=== PATIENT | male | born 1990 | race Caucasian/White ===

== ENCOUNTER 2017-11-23 23:30 | Emergency (ER) | payer MEDICAID ==
[~2017-11-23] VITALS: Ht 170.2 cm; Wt 95.3 kg
--- NOTE | 2017-11-24 00:09 | NUR ---
PT AMBULATORY TO ER BED 3. BIB GF C/O HEADACHE W/DIZZINESS X 2 HOURS. PT PLACED ON MULTICULTURAL MANAGER. VSS/RESP EVEN UNLABORED/NAD NOTED/SKIN WARM AND DRY/AFEBRILE/DENIES N-V-D/AOX4. AWAITNG MD PONCE.
[2017-11-24] MEDS ORDERED: diphenhydrAMINE HCL 50 MG/ML VIAL ONE (01:26)
[2017-11-24] MEDS ORDERED: METOCLOPRAMIDE HCL 10 MG/2 ML VIAL ONE (01:26)
[2017-11-24] MEDS ORDERED: IV NS 0.9% 1,000 ML BAG IV ONE (01:30)
[2017-11-24] MEDS ORDERED: diphenhydrAMINE HCL 50 MG/ML VIAL IV ONE (01:30)
[2017-11-24] MEDS ORDERED: METOCLOPRAMIDE HCL 10 MG/2 ML VIAL IV ONE (01:30)
--- NOTE | 2017-11-24 01:40 | NUR ---
16G IV TO R AC X 1 ATTEMPT USING ASEPTIC TECH. IV FLUSHES EASILY WITH NS, NO S/S INFILTRATION NOTED AT THIS TIME.
--- NOTE | 2017-11-24 01:45 | NUR ---
PT TO CT VIA STRETCHER. VSS.
[2017-11-24] MEDS ORDERED: KETOROLAC TROMETHAMINE INJ 30 MG/ML VIAL IV ONE (02:30)
[2017-11-24] MEDS ORDERED: KETOROLAC TROMETHAMINE INJ 30 MG/ML VIAL ONE (02:41)
--- NOTE | 2017-11-24 03:48 | NUR ---
IV removed. Catheter intact and site benign. Pressure and 4x4 applied to site. No bleeding noted. Patient discharged to home in stable condition. Written and verbal after care instructions given. Patient verbalizes understanding of instruction. Patient is awake and alert to self, day, and place. Patient ambulatory with a steady gait.
[2017-11-24 03:50] VITALS: BP 99/59
== END 2017-11-24 03:51 | disposition home or self-care (01) ==
LOC: ER 23:33
DX: R51 Headache (principal); R42 Dizziness and giddiness; Z90.89 Acquired absence of other organs
CPT/HCPCS: 70450-TC; 82962-TC; A4606; J1200; J1885; J2765; J7030; Z7610

== ENCOUNTER 2019-06-28 13:56 | Emergency (ER) | payer MEDICAID ==
[~2019-06-28] VITALS: Ht 167.6 cm; Wt 94.3 kg
[2019-06-28] MEDS ORDERED: ONDANSETRON HCL/PF 4 MG/2 ML VIAL IVP ONE (14:30)
[2019-06-28] MEDS ORDERED: IV NS 0.9% 1,000 ML BAG IV ONE (14:30)
[2019-06-28] MEDS ORDERED: ONDANSETRON HCL/PF 4 MG/2 ML VIAL ONE (14:39)
[2019-06-28 14:41] LABS: BASOPHILS # (AUTO) 0.1 /CMM (0.0-0.2); EOSINOPHILS % (AUTO) 5.3 % (0.0-6.0); HEMATOCRIT 47 % (39-51); LYMPHOCYTES # (AUTO) 2.3 /CMM (0.8-4.8); LYMPHOCYTES % (AUTO) 28.8 % (20.0-44.0); MEAN CORPUSCULAR HGB CONC 34 g/dl (31.0-36.0); MEAN CORPUSCULAR VOLUME 89 fL (80-96); MONOCYTES # (AUTO) 0.5 /CMM (0.1-1.30); MONOCYTES % (AUTO) 6.2 % (2.0-12.0); NEUTROPHILS # (AUTO) 4.6 /CMM (1.8-8.9); NEUTROPHILS % (AUTO) 58.7 % (43.0-81.0); PLATELET COUNT (AUTO) 251 /CMM (150-450); WHITE BLOOD COUNT (AUTO) 7.8 K/uL (4.3-11.0)
[2019-06-28 14:48] LABS: CALCIUM, SERUM 8.9 mg/dL (8.5-10.1); CARBON DIOXIDE 28 mmol/L (21-32); CHLORIDE 105 mmol/L (98-107); CREATININE 0.9 mg/dL (0.6-1.3); GLUCOSE 100 mg/dL (74-106); POTASSIUM 3.8 mmol/L (3.5-5.1); SODIUM SERUM 142 mmol/L (136-145); UREA NITROGEN, BLOOD 12 mg/dL (7-18)
[2019-06-28 14:54] LABS: ALANINE AMINOTRANSFERASE 51 U/L (12-78); ALBUMIN 3.8 g/dL (3.4-5.0); ALKALINE PHOSPHATASE 97 U/L (46-116); ASPARTATE AMINOTRANSFERASE 25 U/L (15-37); BILIRUBIN,DIRECT 0.1 mg/dL (0.0-0.2); BILIRUBIN,TOTAL 0.5 mg/dL (0.2-1.0); TOTAL PROTEIN, SERUM 7.5 g/dL (6.4-8.2)
[2019-06-28 15:45] VITALS: BP 126/85
== END 2019-06-28 15:56 | disposition home or self-care (01) ==
LOC: ER 13:59
DX: E86.0 Dehydration (principal); Z90.89 Acquired absence of other organs
CPT/HCPCS: 36415; 71045; 80048; 80076; 84484; 85025; 85730; 93005; 96361; 96374; 99285; J2405; J7030

== ENCOUNTER 2021-06-08 09:19 | Emergency (ER) | payer MEDICAID ==
[~2021-06-08] VITALS: Ht 167.6 cm; Wt 113.4 kg
[2021-06-08 09:40] VITALS: BP 121/77
--- NOTE | 2021-06-08 09:47 | NUR ---
dr shelton at bedside for eval.
--- NOTE | 2021-06-08 10:25 | NUR ---
straddle bug operator at bedside for chest xray.
[2021-06-08] MEDS ORDERED: AZIT250T PO (11:19)
== END 2021-06-08 11:47 | disposition home or self-care (01) ==
LOC: ER 09:32
DX: J20.9 Acute bronchitis, unspecified (principal); Z20.822 Contact with and (suspected) exposure to COVID-19
CPT/HCPCS: 71045; 87426; 99283; C9803